=== PATIENT | female | born 1955 | race Asian ===

== ENCOUNTER 2019-03-17 12:17 | Outpatient (CLI) | payer MEDICAID ==
[~2019-03-17 12:17] MED LIST: ALBU8.5H8 IH; FLUT16SP26 BOTHNARES; NO HOME MEDS; ONDA4TAB6 PO; ONDA8TAB9 PO; PHEN-824 PO
== END 2019-03-17 23:59 | disposition home or self-care (01) ==
LOC: VAS 12:17
PROVIDERS: ATTEND Family Medicine
DX: I82.601 Acute embolism and thrombosis of unspecified veins of right upper extremity (principal)
CPT/HCPCS: 93931; 93971

== ENCOUNTER 2020-12-27 19:10 | Emergency (ER) | payer MEDICAID ==
[~2020-12-27] VITALS: Ht 152.4 cm; Wt 52.8 kg
[~2020-12-27 19:10] MED LIST changes: +ALBU8.5H17 IH; -ALBU8.5H8 IH
[2020-12-27 22:48] VITALS: BP 155/72
== END 2020-12-27 22:50 | disposition home or self-care (01) ==
LOC: ER 19:10
DX: S00.03XA Contusion of scalp, initial encounter (principal); R51.9 Headache, unspecified; M25.521 Pain in right elbow; I10 Essential (primary) hypertension; Z86.73 Personal history of transient ischemic attack (TIA), and cerebral infarction without residual deficits; Z87.440 Personal history of urinary (tract) infections; Z85.3 Personal history of malignant neoplasm of breast; Z90.710 Acquired absence of both cervix and uterus; Z98.890 Other specified postprocedural states; Z79.899 Other long term (current) drug therapy; W19.XXXA Unspecified fall, initial encounter; Y93.01 Activity, walking, marching and hiking; Y92.89 Other specified places as the place of occurrence of the external cause; Y99.8 Other external cause status
CPT/HCPCS: 70450; 73080; 99284

== ENCOUNTER 2022-03-27 16:10 | Emergency (ER) | payer MEDICARE, MEDICAID ==
[~2022-03-27] VITALS: Ht 157.5 cm; Wt 58.0 kg
[~2022-03-27 16:10] MED LIST changes: +CYCL-1 PO
[2022-03-27 16:48] LABS: ALANINE AMINOTRANSFERASE 28 U/L (12-78); ALKALINE PHOSPHATASE 70 IU/L (46-116); ANION GAP 6 (8-16); ASPARTATE AMINO TRANSFERASE 23 U/L (10-37); BILIRUBIN,TOTAL 0.3 MG/DL (0.1-1.0); BLOOD UREA NITROGEN 13 MG/DL (7-18); CALCIUM 9.4 MG/DL (8.5-10.1); CHLORIDE 101 MMOL/L (99-107); CREATININE 0.65 MG/DL (0.40-0.90); GLUCOSE 94 MG/DL (70-104); MAGNESIUM 2.4 MG/DL (1.5-2.4); POTASSIUM 3.7 MMOL/L (3.5-5.1); SODIUM 137 MMOL/L (135-145); TOTAL CARBON DIOXIDE 29.9 MMOL/L (24-32); TOTAL PROTEIN 8.1 G/DL (6.4-8.2); eGFR > 90 ML/MIN
[2022-03-27 16:53] LABS: BASOPHILS % (AUTO) 0.4 % (0-1); EOSINOPHILS # (AUTO) 0.3 X10'3 (0-0.9); EOSINOPHILS % (AUTO) 2.5 % (0-6); HEMATOCRIT 37.6 % (35.0-45.0); HEMOGLOBIN 12.5 g/dl (12.0-16.0); LYMPHOCYTES # (AUTO) 2.1 X10'3 (1.1-4.8); LYMPHOCYTES % (AUTO) 19.3 % (21-51); MEAN CORPUSCULAR HEMOGLOBIN 31.8 PG (27.0-31.0); MEAN CORPUSCULAR HGB CONC 33.3 g/dL (33.0-36.5); MEAN CORPUSCULAR VOLUME 95.5 FL (78-98); MEAN PLATELET VOLUME 6.5 FL (7.4-10.4); MONOCYTES # (AUTO) 1.3 X10'3 (0-0.9); MONOCYTES % (AUTO) 11.7 % (2-12); NEUTROPHILS # (AUTO) 7.3 X10'3 (1.8-7.7); NEUTROPHILS % (AUTO) 66.1 % (42-75); PLATELET COUNT 313 X10'3 (140-440); RED BLOOD COUNT 3.94 X10'6 (4.20-5.60); RED CELL DISTRIBUTION WIDTH 13.2 % (11.5-14.5)
[2022-03-27 19:31] VITALS: BP 136/70
[2022-03-27 19:36] LABS: D-DIMER 0.31 MG/L FEU (0-0.50)
[2022-03-27] MEDS ORDERED: ketorolac trometh. 30mg/ml inj. IM ONE (19:50)
== END 2022-03-27 20:59 | disposition home or self-care (01) ==
LOC: ER 16:11
DX: R07.89 Other chest pain (principal); Z90.710 Acquired absence of both cervix and uterus
CPT/HCPCS: 36415; 71045; 80053; 83735; 83880; 84484; 85025; 85379; 93005; 96372; 99285; J1885

== ENCOUNTER 2023-11-19 17:08 | Emergency (ER) | payer MEDICARE, MEDICAID ==
[~2023-11-19] VITALS: Ht 157.5 cm; Wt 58.2 kg
[2023-11-19 17:26] VITALS: BP 155/73; PULSE 62; O2SAT 98
[2023-11-19] MEDS: ondansetron 4mg rapidly disintigrating tab PO ONE (18:12)
[2023-11-19] MEDS: dexamethasone sod phosphate 10mg/ml inj PO STA (18:12)
[2023-11-19] MEDS: HYDROcodone/acetaminophen 5mg/325mg tablet PO ONE (18:12)
[2023-11-19 18:14] VITALS: RESP 18
[2023-11-19] MEDS: ketorolac trometh 30MG/ML vial 30 MG/ML VIAL IM ONE (18:14)
[2023-11-19 18:49] VITALS: TEMP 98.2
== END 2023-11-19 18:55 | disposition home or self-care (01) ==
LOC: ER 17:09
DX: R51.9 Headache, unspecified (principal); I10 Essential (primary) hypertension; Z79.899 Other long term (current) drug therapy; Z90.710 Acquired absence of both cervix and uterus; Z85.3 Personal history of malignant neoplasm of breast; Z86.73 Personal history of transient ischemic attack (TIA), and cerebral infarction without residual deficits; Z87.440 Personal history of urinary (tract) infections; Z90.721 Acquired absence of ovaries, unilateral
CPT/HCPCS: 70450; 96372; 99285; J1100; J1885